=== PATIENT | male | born 1995 | race Caucasian/White ===

== ENCOUNTER → 2018-02-16 | Outpatient (CLI) | payer BC ==
[2012-11-09 16:11] VITALS: BP 118/65
[~2018-02-16] MED LIST: CEPHALEXIN500 M1 PO
[2018-02-16 16:27] LABS: HEMATOCRIT 47.3 % (42.0-52.0); HEMOGLOBIN 15.7 g/dL (13.5-18.0); MEAN CELL VOLUME 87 fl (78-100); MEAN CORPUSCULAR HEMOGLOBIN 29 pg (27-31); MEAN CORPUSCULAR HGB CONC 33 g/dL (33-37); MEAN PLATELET VOLUME 10.2 fl (7.4-10.4); PLATELET COUNT 225 K/mm3 (130-400); RED BLOOD COUNT 5.43 M/mm3 (4.20-5.60); RED CELL DISTRIBUTION WIDTH 12.3 % (11.5-14.5); WHITE BLOOD COUNT 5.8 K/mm3 (4.8-10.8)
[2018-02-16 16:46] LABS: ALBUMIN 4.8 g/dL (3.5-5.0); AST-SGOT 24 U/L (17-59); CALCIUM 10.1 mg/dL (8.4-10.2); CARBON DIOXIDE 31 mmol/L (22-30); GLUCOSE 78 mg/dL (75-110); SODIUM 140 mmol/L (137-145); TOTAL BILIRUBIN 0.6 mg/dL (0.2-1.3); TOTAL PROTEIN 7.8 g/dL (6.3-8.2)
[2018-02-16 17:02] LABS: ALT/SGPT < 3 U/L (21-72)
[2018-02-16 20:25] LABS: BASO # 0.1 (0.02-0.10); EOS # 0.5 (0.04-0.40); MONO # 0.5 (0.20-0.80); NEU # 2.7 (1.40-6.50)
[2018-02-16 20:39] LABS: LYMPHOCYTE 39 % (20-51); MONOCYTE 8 % (3-10); NEUTROPHILS 45 % (42-75)
[2018-02-16 20:47] LABS: EOS % 8.3 % (0.0-4.0)
== END ==
LOC: LAB 16:13
PROVIDERS: Family Medicine
DX: Z00.00 Encounter for general adult medical examination without abnormal findings (principal); J45.40 Moderate persistent asthma, uncomplicated; J30.9 Allergic rhinitis, unspecified; L20.9 Atopic dermatitis, unspecified

== ENCOUNTER → 2020-07-03 | Outpatient (CLI) | payer BC ==
[2012-11-09 16:11] VITALS: BP 118/65
[2020-07-03 10:13] LABS: BASO # 0.09 (0.02-0.10); EOS # 0.44 (0.04-0.40); EOS % 6.8 % (0.0-4.0); HEMATOCRIT 51.2 % (42.0-52.0); HEMOGLOBIN 17.2 g/dL (13.5-18.0); LYMPH# 1.18 (1.50-4.00); MEAN CELL VOLUME 91 fl (78-100); MEAN CORPUSCULAR HEMOGLOBIN 31 pg (27-31); MEAN CORPUSCULAR HGB CONC 34 g/dL (33-37); MEAN PLATELET VOLUME 9.5 fl (7.4-10.4); MONO # 0.49 (0.20-0.80); NEU # 4.21 (1.40-6.50); PLATELET COUNT 246 K/mm3 (130-400); RED CELL DISTRIBUTION WIDTH 12.2 % (11.5-14.5); WHITE BLOOD COUNT 6.4 K/mm3 (4.8-10.8)
[2020-07-03 10:33] LABS: ALBUMIN 4.8 g/dL (3.5-5.0); POTASSIUM 4.4 mmol/L (3.5-5.1)
[2020-07-03 10:34] LABS: CALCIUM 9.6 mg/dL (8.3-10.5)
[2020-07-03 10:37] LABS: TOTAL BILIRUBIN 0.4 mg/dL (0.2-1.2)
== END ==
LOC: LAB 10:00
PROVIDERS: Family Medicine
DX: Z00.00 Encounter for general adult medical examination without abnormal findings (principal); E78.5 Hyperlipidemia, unspecified; Z83.49 Family history of other endocrine, nutritional and metabolic diseases; Z72.51 High risk heterosexual behavior

== ENCOUNTER → 2021-07-23 | Outpatient (CLI) | payer BC | LOC: LAB 11:57 | DX: Z20.2 Contact with and (suspected) exposure to infections with a predominantly sexual mode of transmission (principal) ==